=== PATIENT | female | born 1990 | race Caucasian/White ===

== ENCOUNTER → 2018-09-16 | Outpatient (CLI) | payer OTHER | LOC: COL.PUL 12:15 | DX: R05 Cough (principal) ==

== ENCOUNTER → 2019-11-22 | Outpatient (CLI) | payer OTHER | LOC: BHSO 10:44 | DX: F33.41 Major depressive disorder, recurrent, in partial remission (principal) ==

== ENCOUNTER 2020-08-08 07:49 | Emergency (ER) | payer OTHER ==
[~2020-08-08] VITALS: Ht 167.6 cm; Wt 100.0 kg
[2020-08-08 07:57] VITALS: TEMP 96.9
[2020-08-08] MEDS ORDERED: PROAIR HFA0.09 MG/AC IH (08:00)
[2020-08-08] MEDS ORDERED: FLOVENT 44MCG I13 GM IH (08:00)
[2020-08-08] MEDS ORDERED: RT ADVAIR HFA 412 GM IH (08:00)
[2020-08-08] MEDS ORDERED: D3-5050000 IU PO (08:01)
[2020-08-08] MEDS ORDERED: EFFEXOR-XR150 MG PO (08:01)
[2020-08-08] MEDS ORDERED: JUNEL FE 1/20 21 TAB PO (08:01)
[2020-08-08] MEDS ORDERED: SUDAFED 12 HOU120 MG PO (08:02)
[2020-08-08 08:44] LABS: BASO # 0.1 (0.0-0.2); BASO % 0.4 % (0.0-2.0); EOS % 0.3 % (0-4.0); GRAN # 7.3 (1.4-6.5); GRAN % 64.1 % (42.2-75.2); HEMATOCRIT 42.2 % (37.0-47.0); LYMPH # 3.4 (1.2-3.4); LYMPH % 29.9 % (20.0-51.0); MEAN CELL VOLUME 85 fl (80.0-100.0); MEAN CORPUSCULAR HEMOGLOBIN 28 pg (27.0-31.0); MEAN CORPUSCULAR HGB CONC 33 g/dl (33.0-37.0); MONO # 0.6 (0.1-0.6); PLATELET COUNT 301 K/mm3 (130-400); RED BLOOD COUNT 4.95 M/mm3 (4.10-5.30); REDCELL DISTRIBUTION WIDTH-CV 12.3 % (11.5-14.5)
[2020-08-08 08:56] LABS: ALBUMIN 4.3 gm/dL (3.5-5.0); BILIRUBIN,TOTAL 0.2 mg/dL (0.0-1.0); CALCIUM 9.1 mg/dL (8.4-10.2); CREATININE, serum 0.55 (0.52-1.25); POTASSIUM 3.5 mmol/L (3.4-5.0); TOTAL PROTEIN 8.3 gm/dL (6.4-8.2)
[2020-08-08] MEDS ORDERED: PREDNISONE20 MG PO (10:19)
[2020-08-08 10:45] VITALS: BP 131/82; PULSE 85
== END 2020-08-08 10:51 | disposition home or self-care (01) ==
LOC: COL.ER 07:49
PROVIDERS: Emergency Medicine
DX: J45.901 Unspecified asthma with (acute) exacerbation (principal); F32.9 Major depressive disorder, single episode, unspecified; F41.9 Anxiety disorder, unspecified; Z88.1 Allergy status to other antibiotic agents
CPT/HCPCS: J2930; J3475; J7030